=== PATIENT | male | born 1990 | race Caucasian/White ===

== ENCOUNTER 2022-03-15 10:38 | Emergency (ER) | payer OTHER ==
[~2022-03-15] VITALS: Ht 167.6 cm; Wt 92.5 kg
[2022-03-15 10:54] VITALS: BP 108/71
[2022-03-15] MEDS ORDERED: IBUP-2213 PO (11:49)
[2022-03-15] MEDS ORDERED: METH-1681 PO (11:49)
[2022-03-15 12:11] VITALS: BP 108/71
--- NOTE | 2022-03-15 12:11 | NUR ---
NO NURSING INTERVENTIONS PROVIDED
--- NOTE | 2022-03-15 12:12 | NUR ---
Patient discharged with v/s stable. Written and verbal after care instructions ABOUT LUMBAR STRAIN given and explained. Patient alert, oriented and verbalized understanding of instructions. Ambulatory with steady gait. All questions addressed prior to discharge. ID band removed. Patient advised to follow up with PMD. Rx of IBUPROFEN AND ROBAXIN given. Patient educated on indication of medication including possible reaction and side effects. Opportunity to ask questions provided and answered.
== END 2022-03-15 12:12 | disposition home or self-care (01) ==
LOC: MED 10:38
DX: S39.012A Strain of muscle, fascia and tendon of lower back, initial encounter (principal); F14.90 Cocaine use, unspecified, uncomplicated; Z79.899 Other long term (current) drug therapy; V89.2XXA Person injured in unspecified motor-vehicle accident, traffic, initial encounter; Y93.89 Activity, other specified; Y92.411 Interstate highway as the place of occurrence of the external cause; Y99.8 Other external cause status
CPT/HCPCS: 99283